=== PATIENT | female | born 1940 | race Caucasian/White ===

== ENCOUNTER → 2019-03-08 12:38 | Outpatient (CLI) | payer MEDICARE, OTHER, SELFPAY | PROVIDERS: PCP Family Medicine; Visit Provider Family Medicine | DX: M81.0 Age-related osteoporosis without current pathological fracture (principal); Z78.0 Asymptomatic menopausal state | CPT/HCPCS: 77080 ==

== ENCOUNTER 2019-04-30 11:05 | Emergency (ER) | payer MEDICARE, OTHER, SELFPAY ==
[2019-04-30 11:27] VITALS: BP 152/97; PULSE 80; RESP 12; TEMP 36.3; O2SAT 98
--- NOTE | 2019-04-30 11:57 | ED.FALL ---
HPI - Fall <Brianna Dhaliwal PA-C - Last Filed: 04/30/19 20:45> General Chief Complaint: Fall Stated Complaint: fell Time Seen by Provider: 04/30/19 11:38 Source: patient Mode of arrival: Ambulatory Limitations: no limitations History of Present Illness HPI Narrative: This 78-year-old female comes to ED secondary to fall and laceration. She states that she got up quickly from the bathroom and tripped over her throw rug or slipper, pitching her forward and causing her to hit the ledge of the shower on her left cheek/anabaptism area. She states that she has pain around the site of the laceration there, but otherwise no headache. She denies any vision change. She denies any nausea or vomiting. She states that she did not hit her head elsewhere, did not hit her neck and does not have any neck or back pain. She has not had any difficulty with speech or walking, came in because she thinks she needs stitches. She does take low-dose ASA for preventative reasons Related Data Home Medications Medication Instructions Recorded Confirmed BIOTIN/CA/CA PANTOTHENATE/CR3 1 tab PO Q DAY #0 12/07/10 (CENTRUM SILVER) aspirin 81 mg PO Q DAY #0 12/07/10 fenofibrate nanocrystallized 160 mg PO Q DAY #0 12/07/10 [Triglide] lisinopril 5 mg PO Q DAY #0 12/07/10 niacin 500 mg PO BID #0 12/07/10 omeprazole 20 mg PO Q DAY #0 12/07/10 Fluticasone Propionate (FLONASE) 2 spray INTRANASAL QDAY #0 06/01/12 hydrocodone-acetaminophen [Vicodin] 2 tab PO Q4HP #0 06/01/12 meloxicam [Mobic] 15 mg PO QDAY #0 06/01/12 pravastatin 40 mg PO HS #0 06/01/12 tolterodine [Detrol LA] 2 mg PO QDAY #0 cap 03/29/16 Allergies Allergy/AdvReac Type Severity Reaction Status Date / Time adhesive tape [ADHESIVE TAPE] Allergy Mild PAPER TAPE Unverified 09/27/17 12:55 CAUSED SKIN PEELING Sulfa (Sulfonamide Allergy Unknown UNKNONW Unverified 09/27/17 12:55 Antibiotics) Review of Systems <Brianna Dhaliwal PA-C - Last Filed: 04/30/19 20:45> Review of Systems ROS Unobtainable: All systems reviewed & are unremarkable except as noted in HPI and below Patient History <Brianna Dhaliwal PA-C - Last Filed: 04/30/19 20:45> Medical History (Updated 04/30/19 @ 14:47 by Brianna Dhaliwal PA-C) HTN (hypertension) (Chronic) Hyperlipidemia (Chronic) Overactive bladder (Chronic) Surgical History (Updated 04/30/19 @ 13:21 by Brianna Dhaliwal PA-C) History of femur fracture (Resolved) Status post clamping of cerebral aneurysm (Resolved) Status post tonsillectomy (Resolved) Social History (Updated 04/30/19 @ 12:21 by Brianna Dhaliwal PA-C) Smoking Status: Former smoker Substance Use Type: does not use Exam <Brianna Dhaliwal PA-C - Last Filed: 04/30/19 20:45> Narrative Exam Narrative: GENERAL APPEARANCE: Patient sitting comfortably, in no distress. HEENT: PERRL, EOMI, normal TMs and oropharynx, no scalp tenderness. tender over the left maxilla and infraorbital area where there is edema and ecchymoses, no tenderness elsewhere NECK: Supple LUNGS: Clear to auscultation bilaterally. HEART: Rate and rhythm regular without murmur, normal S1 and S2, no S3 or S4. NEUROLOGIC: Alert and oriented, normal speech, gait and coordination. MUSCULOSKELETAL: No point tenderness over the cervical or upper thoracic spine. Full Csp AROM without tenderness DERMATOLOGIC: Lateral to the left orbit and maxilla there is a 5.5 cm curvilinear laceration 4 mm at the deepest, distal portion with a to to 3 mm gap there, proximal portion 2 mm deep with no gap Initial Vital Signs Initial Vital Signs: Vital Signs Temperature 97.4 F L 04/30/19 11:27 Pulse Rate 80 04/30/19 11:27 Respiratory Rate 12 04/30/19 11:27 Blood Pressure 152/97 H 04/30/19 11:27 Pulse Oximetry 98 04/30/19 11:27 <Nikko Delgadillo DO - Last Filed: 05/01/19 07:58> Initial Vital Signs Initial Vital Signs: Vital Signs Temperature 97.4 F L 04/30/19 11:27 Pulse Rate 80 04/30/19 11:27 Respiratory Rate 12 04/30/19 11:27 Blood Pressure 152/97 H 04/30/19 11:27 Pulse Oximetry 98 04/30/19 11:27 Procedures <Brianna Dhaliwal PA-C - Last Filed: 04/30/19 20:45> Laceration Repair Laceration 1: Site: face (Hulbert, lateral to orbit) Side (If applicable): left Size (cm): 5.5 Description: linear and clean Depth: simple, single layer Local Anesthetic: lidocaine 1% and with epi Amount of anesthesia used (mL): 3 Pre-repair: wound explored, irrigated extensively and deep structures intact Skin layer closed with: nylon Size (cm): 5-0 and 6-0 Number of sutures: 10 Technique: simple, interrupted Course <Brianna Dhaliwal PA-C - Last Filed: 04/30/19 20:45> Course Additional Information: I have spoken with Dr. Hall, ENT who has reviewed scans and advised orbital fx appears not to need surgical intervention, so patient will be able to follow up in their clinic. She will call to schedule. Also advised follow up with PCP for suture removal. Orders Ordered: Discontinued Medications Acetaminophen (Tylenol) 650 mg PO NOW ONE Stop: 04/30/19 12:13 Last Admin: 04/30/19 12:18 Dose: 650 mg Documented by: PAUL Lidocaine/Epinephrine (Xylocaine 1% W/Epi) 1 ml SUBCUT NOW ONE Stop: 04/30/19 13:30 Last Admin: 04/30/19 13:32 Dose: 1 ml Documented by: PAUL Lidocaine/Prilocaine (Lidocaine-Prilocaine Cream) 5 gm TOP NOW ONE Stop: 04/30/19 12:12 Last Admin: 04/30/19 12:17 Dose: 5 gm Documented by: PAUL Vital Signs Vital signs: Vital Signs - 8 hr 04/30/19 14:59 Pulse Rate 81 Respiratory Rate 18 Blood Pressure 176/82 H Pulse Oximetry 94 <Nikko Delgadillo DO - Last Filed: 05/01/19 07:58> Orders Ordered: Discontinued Medications Acetaminophen (Tylenol) 650 mg PO NOW ONE Stop: 04/30/19 12:13 Last Admin: 04/30/19 12:18 Dose: 650 mg Documented by: PAUL Lidocaine/Epinephrine (Xylocaine 1% W/Epi) 1 ml SUBCUT NOW ONE Stop: 04/30/19 13:30 Last Admin: 04/30/19 13:32 Dose: 1 ml Documented by: PAUL Lidocaine/Prilocaine (Lidocaine-Prilocaine Cream) 5 gm TOP NOW ONE Stop: 04/30/19 12:12 Last Admin: 04/30/19 12:17 Dose: 5 gm Documented by: PAUL Vital Signs Vital signs: Vital Signs - 8 hr 04/30/19 14:59 Pulse Rate 81 Respiratory Rate 18 Blood Pressure 176/82 H Pulse Oximetry 94 MDM - Fall <Brianna Dhaliwal PA-C - Last Filed: 04/30/19 20:45> Imaging Data head: Radiologist's impression: [address] [address] [address] Scan Report Signed Patient: Lola Ash RMR#: [id number] : [id number]:[id number] Age/Sex: 78 / FDate of Service: 04/30/19 Loc: ED Accession Number: [id number] Procedure: CT head/brain wo con Ordering Provider: Brianna Dhaliwal P.A-C PROCEDURE: CT HEAD/BRAIN WO CON INDICATIONS: fall, on asa TECHNIQUE: Noncontrast 4.5 mm thick angled axial sections acquired from the foramen magnum to the vertex, with coronal and sagittal reformats. For radiation dose reduction, the following was used: automated exposure control, adjustment of mA and/or kV according to patient size. COMPARISON: [facility], MR, ANGIO NECK W/CONTRAST, 08/20/2004, 13:04. [facility], CT, ANGIO HEAD, 09/24/2012, 9:52. FINDINGS: Image quality: Excellent. CSF spaces: Basal cisterns are patent. No extra-axial fluid collections. The ventricles are symmetric in size and shape. Brain: Postsurgical changes compatible with prior cerebral aneurysm clipping are stable. No intracranial bleeds or masses. There is cerebral volume loss for age, with resultant ventricular and sulcal prominence. There are periventricular and deep white matter chronic small vessel ischemic changes. There is intracranial internal carotid artery and vertebral artery atherosclerosis. Skull and face: Postsurgical changes compatible with prior left frontal and temporal craniotomy for cerebral aneurysm clipping.. visualized facial bones appear intact, without suspicious lesions. Sinuses: Visualized sinuses and mastoids are clear. IMPRESSION: 1. No acute intracranial disease process. 2. No acute intracranial hemorrhage. 3. Stable postsurgical changes. Dictated by: Deb Guillermo MD, PhD on 04/30/2019 at 12:41 Approved by: Deb Guillermo MD, PhD on 04/30/2019 at 12:54 facial: Radiologist's impression: 21 Brianna Dhaliwal PA-C Find Patient Imaging - Lola Ash 78 F 1940 ACTIVITY DATE EXAM STATUS AUTHOR 04/30/19 12:14 Signed Deb Guillermo 04/30/19 12:14 [place] [address] CT Scan Report Signed Patient: Lola Ash RMR#: [id number] : [id number]:[id number] Age/Sex: 78 / FDate of Service: 04/30/19 Loc: ED Accession Number: [id number] Procedure: CT facial bones wo con Ordering Provider: Brianna Dhaliwal P.A-C PROCEDURE: CT FACIAL BONES WO CON INDICATIONS: fall, maxillary, infraorbital swelling TECHNIQUE: Noncontrast 2.5 mm thick axial images acquired from the mandible through the frontal sinuses, with coronal and sagittal reformatting. For radiation dose reduction, the following was used: automated exposure control, adjustment of mA and/or kV according to patient size. COMPARISON: None. FINDINGS: Image quality: Limited by patient motion artifact.. Bones and teeth: Postsurgical changes compatible with prior left frontal-temporal craniotomy for cerebral aneurysm clipping. There is a fracture of the lateral wall of the left orbit of indeterminate age. Sinus crenshaw show no fracture or deformity. Nasal bones and septum are intact. Visualized portions of the mandible demonstrate no fractures or subluxation. Zygomatic arches are intact. Pterygoid plates are intact. Visualized portions of the skull base and auditory canals are intact. Sinuses: Mucosal thickening noted in the maxillary sinuses, scattered throughout ethmoid air cells, and the sphenoid sinuses and in the frontal sinuses. The. Mastoid air cells are aerated. Soft tissues: No edema, masses, or fluid collections. No enlarged lymph nodes. No soft tissue lacerations or debris. Vascular: Visualized vascular structures appear normal in the absence of contrast. Bony vascular foramina and canals are intact. Atherosclerotic calcifications noted in the cavernous and supraclinoid segments of the internal carotid arteries bilaterally. IMPRESSION: 1. Mildly displaced, segmented left lateral orbital wall fracture of indeterminate age. 2. Mild pansinusitis. Dictated by: Deb Guillermo MD, PhD on 04/30/2019 at 12:54 Approved by: Deb Guillermo MD, PhD on 04/30/2019 at 13:01 Discharge Plan Departure Patient Disposition: Home Clinical Impression: Orbital fracture Qualifiers: Encounter type: initial encounter Fracture type: closed Qualified Code(s): S02.85XA - Fracture of orbit, unspecified, initial encounter for closed fracture Facial laceration Qualifiers: Encounter type: initial encounter Qualified Code(s): S01.81XA - Laceration without foreign body of other part of head, initial encounter Discharge Date/Time: 04/30/19 15:00 Instructions: DI for Laceration Repair, DI for Orbital Fracture Activity Restrictions/Additional Instructions: As we talked about, you should monitor your wound for any signs of infection such as warmth, draining pus, spreading redness, new fever, etc, and see your PCP right away or return to the ED if any of these occur. You should also return if you start to have any severe eye pain or vision change. Otherwise, please keep this wound clean and dry. You can rinse quickly and pat dry but do not keep immersed in water. Apply a little antibiotic ointment or Vaseline as needed to keep the sutures moist. I have spoken with the local oncology research rn today who reviewed your CT scan and states that the small fracture that you have under the eye area does not need surgery, however you should follow-up with them. Please call there today and let them know that Dr. Hall looked at your CT scan and advised follow-up in the office so that they can get you scheduled. Please have your sutures removed in about 5-7 days (your PCP can do this or you are welcome to return here). Prescriptions: No Action omeprazole 20 MG capsule,delayed release(DR/EC) 20 mg PO Q DAY Qty: 0 RF: 0 aspirin 81 MG tablet,delayed release (DR/EC) 81 mg PO Q DAY Qty: 0 RF: 0 BIOTIN/CA/CA PANTOTHENATE/CR3 (CENTRUM SILVER) 1 tab PO Q DAY Qty: 0 RF: 0 lisinopril 5 MG tablet 5 mg PO Q DAY Qty: 0 RF: 0 fenofibrate nanocrystallized [Triglide] 160 MG tablet 160 mg PO Q DAY Qty: 0 RF: 0 niacin 500 MG tablet 500 mg PO BID Qty: 0 RF: 0 meloxicam [Mobic] 7.5 MG tablet 15 mg PO QDAY Qty: 0 RF: 0 pravastatin 20 MG tablet 40 mg PO HS Qty: 0 RF: 0 hydrocodone-acetaminophen [Vicodin] 5 MG/300 MG tablet 2 tab PO Q4HP Qty: 0 RF: 0 Fluticasone Propionate (FLONASE) 2 spray Intranasal QDAY Qty: 0 RF: 0 tolterodine [Detrol LA] 2 MG capsule,extended release 24hr 2 mg PO QDAY Qty: 0 RF: 0 Referrals: Abbe Hall MD [Physician] - Balaji Soto MD [Primary Care Provider] - <Nikko Delgadillo, DO - Last Filed: 05/01/19 07:58> Sign Out Provider Sign Out Attestation: Dr Delgadillo Co-Sign Statement: I was available for consultation during this patient's emergency department visit. This chart is signed by myself for administrative purposes only. I did not have direct contact with this patient during this visit. They were seen independently by the APC.
--- NOTE | 2019-04-30 12:14 | DI.CT.S_ITS ---
PROCEDURE: CT FACIAL BONES WO CON INDICATIONS: fall, maxillary, infraorbital swelling TECHNIQUE: Noncontrast 2.5 mm thick axial images acquired from the mandible through the frontal sinuses, with coronal and sagittal reformatting. For radiation dose reduction, the following was used: automated exposure control, adjustment of mA and/or kV according to patient size. COMPARISON: None. FINDINGS: Image quality: Limited by patient motion artifact.. Bones and teeth: Postsurgical changes compatible with prior left frontal-temporal craniotomy for cerebral aneurysm clipping. There is a fracture of the lateral wall of the left orbit of indeterminate age. Sinus crenshaw show no fracture or deformity. Nasal bones and septum are intact. Visualized portions of the mandible demonstrate no fractures or subluxation. Zygomatic arches are intact. Pterygoid plates are intact. Visualized portions of the skull base and auditory canals are intact. Sinuses: Mucosal thickening noted in the maxillary sinuses, scattered throughout ethmoid air cells, and the sphenoid sinuses and in the frontal sinuses. The. Mastoid air cells are aerated. Soft tissues: No edema, masses, or fluid collections. No enlarged lymph nodes. No soft tissue lacerations or debris. Vascular: Visualized vascular structures appear normal in the absence of contrast. Bony vascular foramina and canals are intact. Atherosclerotic calcifications noted in the cavernous and supraclinoid segments of the internal carotid arteries bilaterally. IMPRESSION: 1. Mildly displaced, segmented left lateral orbital wall fracture of indeterminate age. 2. Mild pansinusitis. Dictated by: Deb Guillermo MD, PhD on 04/30/2019 at 12:54 Approved by: Deb Guillermo MD, PhD on 04/30/2019 at 13:01
--- NOTE | 2019-04-30 12:14 | DI.CT.S_ITS ---
PROCEDURE: CT HEAD/BRAIN WO CON INDICATIONS: fall, on asa TECHNIQUE: Noncontrast 4.5 mm thick angled axial sections acquired from the foramen magnum to the vertex, with coronal and sagittal reformats. For radiation dose reduction, the following was used: automated exposure control, adjustment of mA and/or kV according to patient size. COMPARISON: [facility], MR, ANGIO NECK W/CONTRAST, 08/20/2004, 13:04. [facility], CT, ANGIO HEAD, 09/24/2012, 9:52. FINDINGS: Image quality: Excellent. CSF spaces: Basal cisterns are patent. No extra-axial fluid collections. The ventricles are symmetric in size and shape. Brain: Postsurgical changes compatible with prior cerebral aneurysm clipping are stable. No intracranial bleeds or masses. There is cerebral volume loss for age, with resultant ventricular and sulcal prominence. There are periventricular and deep white matter chronic small vessel ischemic changes. There is intracranial internal carotid artery and vertebral artery atherosclerosis. Skull and face: Postsurgical changes compatible with prior left frontal and temporal craniotomy for cerebral aneurysm clipping.. visualized facial bones appear intact, without suspicious lesions. Sinuses: Visualized sinuses and mastoids are clear. IMPRESSION: 1. No acute intracranial disease process. 2. No acute intracranial hemorrhage. 3. Stable postsurgical changes. Dictated by: Deb Guillermo MD, PhD on 04/30/2019 at 12:41 Approved by: Deb Guillermo MD, PhD on 04/30/2019 at 12:54
[2019-04-30] MEDS: LIDOCAINE/PRILOCAINE 5 GM TOP (12:17)
[2019-04-30] MEDS: ACETAMINOPHEN 325 MG TABLET 650 MG PO (12:18)
[2019-04-30] MEDS: LIDOCAINE 1% W/EPI 1 ML SUBCUT (13:32)
[2019-04-30 14:59] VITALS: BP 176/82; PULSE 81; RESP 18; O2SAT 94
== END 2019-04-30 15:00 | disposition home or self-care (01) ==
PROVIDERS: Emergency Provider Internal Medicine; PCP Family Medicine
DX: S02.85XB Fracture of orbit, unspecified, initial encounter for open fracture (principal); W01.190A Fall on same level from slipping, tripping and stumbling with subsequent striking against furniture, initial encounter
CPT/HCPCS: 12014; 70450; 70486; 99283; 99284

== ENCOUNTER → 2019-10-18 12:32 | Outpatient (CLI) | payer MEDICARE, OTHER, SELFPAY ==
--- NOTE | 2019-10-18 12:36 | DI.MRI.S_ITS ---
PROCEDURE: MR STROKE Pre- and post-contrast brain MRI, non-contrast brain MR angiogram, pre- and postcontrast neck MR angiogram INDICATIONS: Dizziness and giddiness TECHNIQUE: Brain: Noncontrast axial T1 spin echo, axial T2 fast spin echo, sagittal and axial FLAIR, coronal T2 fast spin echo, axial gradient echo, axial diffusion and ADC through the brain. After the administration of contrast, axial 3D VIBE of the cranial vasculature and brain. Brain MRA: Non-contrast 3-D time of flight MR angiogram, with multiple gagemdf-ljpswwgno-cwvrytmdsg (MIP) reformats performed. Neck MRA: Axial and sagittal TruFISP through the neck. Coronal dynamic MR angiogram during administration of contrast in the arterial and venous phases, with 3-dimenstional zwbctuz-nydxusedk-gmkyjzffhv (MIP) reformats constructed from subtraction images. COMPARISON: None. FINDINGS: Image quality: Limited by susceptibility artifact BRAIN: CSF spaces: Ventricles are normal in size and shape. Basal cisterns are patent. No extra-axial fluid collections. Brain: No intracranial bleeds or mass effects. Zepeda-white matter interface is normal. Diffusion weighted images show no acute ischemic insults. Brainstem appears normal. Normal intravascular flow voids are present. No abnormal intracranial enhancement. Skull and face: Left-sided craniotomy changes are seen. Calvarial marrow signal is normal. Orbits appear normal. Note is made of bilateral lens replacements. Sinuses: Sinuses and mastoids are clear. BRAIN MR ANGIOGRAM: Anterior circulation: Left carotid terminus aneurysm clips are seen, which are better demonstrated on the prior CT. There is regional susceptibility artifact with dropout of signal. Intracranial internal carotid arteries are normal in size and enhancement. The flow within the paired anterior cerebral arteries is normal and symmetric. The flow within the middle cerebral arteries is normal and symmetric. The anterior communicating artery is seen. No stenoses, occlusions, or aneurysms. Posterior circulation: The visualized portions of the vertebral arteries demonstrate normal caliber, and join to form a normal appearing basilar artery. The flow within the posterior cerebral arteries is normal and symmetric. No stenoses, occlusions, or aneurysms. NECK MR ANGIOGRAM: Carotids: Great vessels demonstrate a conventional anatomy as they arise from the aortic arch. The origins of the common carotid arteries appear patent. The calibers and courses of both common carotid arteries are normal. The bifurcation regions appear normal bilaterally. The internal carotid arteries demonstrate normal course and caliber. Posterior circulation: The origins of the vertebral arteries appear patent. More superior portions of both vertebral arteries demonstrate normal course and caliber, and join to form a normal appearing basilar artery. Miscellaneous: Subclavian arteries appear patent. Pre-contrast images through the neck show no soft tissue abnormalities. IMPRESSION: BRAIN MRI: No findings of acute or subacute infarction can be seen. No acute intracranial process is seen. No masses or abnormal enhancement can be seen. BRAIN MR ANGIOGRAM: Left carotid terminus aneurysm clips, which are better demonstrated on the prior CT examination. Evaluation of the arteries within this region is limited. No findings of recurrent aneurysms are detected. No significant intracranial arterial abnormality is seen. NECK MR ANGIOGRAM: Within the arteries of the neck, no hemodynamically significant stenosis can be seen. Dictated by: Payam Bruce M.D. on 10/18/2019 at 13:17 Approved by: Payam Bruce M.D. on 10/18/2019 at 13:24
== END ==
PROVIDERS: PCP Family Medicine; Referring Provider Family Medicine; Visit Provider Family Medicine
DX: R42 Dizziness and giddiness (principal); R20.2 Paresthesia of skin
CPT/HCPCS: 70548; 70553; A9579

== ENCOUNTER → 2021-05-27 09:33 | Outpatient (CLI) | payer MEDICARE, OTHER, SELFPAY | PROVIDERS: PCP Family Medicine; Referring Provider Family Medicine; Visit Provider Family Medicine | DX: R20.2 Paresthesia of skin (principal) | CPT/HCPCS: 95886; 95909 ==

== ENCOUNTER → 2021-10-14 15:28 | Outpatient (CLI) | payer MEDICARE, OTHER, SELFPAY | PROVIDERS: PCP Family Medicine; Referring Provider Family Medicine; Visit Provider Family Medicine | DX: R19.00 Intra-abdominal and pelvic swelling, mass and lump, unspecified site (principal) ==

== ENCOUNTER → 2021-10-20 15:49 | Outpatient (CLI) | payer MEDICARE, OTHER, SELFPAY ==
--- NOTE | 2021-10-20 15:51 | DI.MRI.S_ITS ---
PROCEDURE: MR PELVIS WO/W CON INDICATIONS: Intra-abdominal and pelvic swelling, mass and lump TECHNIQUE: Coronal HASTE, sagittal breath-hold T2 FSE; axial T1 FSE with and without fat saturation through the pelvis. Optional long- and short-axis uterine nonbreath-hold T2 FSE through the uterus. Sagittal or axial dynamic VIBE during administration of contrast. Post-contrast axial or coronal VIBE/2-D FLASH with fat saturation from the iliac crests to the symphysis. Optional diffusion weighted imaging and ADC may be performed. COMPARISON: [facility], RG, US PELVIC COMPLETE, 09/20/2021, 14:29. CT abdomen pelvis 09/19/21 at [facility]. FINDINGS: Image quality: Excellent. Uterus: Uterus is anteverted and age-appropriate in size. 0.8 cm T2 hypointense posterior fundal myometrial fibroid is present. There is slight heterogeneity of the left anterior myometrium, potentially a tiny fibroid measuring less than 4 mm. Endometrium is normal in thickness. Junctional zone is normal in thickness at 12 mm or less. Adnexa: Replacing the left ovary is a homogeneously T1 and T2 isointense circumscribed mass measuring 3.5 x 3.2 x 1.7 cm immediately anterior to the left uterine fundus. A discrete tissue bridge or discrete fat plane between the uterus and the mass is not discernible. Post-contrast there is moderate, homogeneous enhancement. There is restricted diffusion. The right ovary is comprised of a multiloculated cystic mass with varying components measuring altogether about 5.5 x 3.6 x 4.1 cm. The dominant component is a unilocular cyst. Other components demonstrate hemorrhagic components with mild intrinsic T1 and T2 hyperintensity and foci of prominent T2 hypointensity. Postcontrast there appears to be enhancement of small solid components present. Urinary system: Bladder wall is normal in thickness. Distal ureters are non distended. Urethra appears normal in morphology. Nodes and vessels: No pelvic or inguinal adenopathy by size criteria. Iliac vessels are normal in size. Bowel and peritoneum: No pathologic free pelvic fluid. Inferior colon and small bowel loops are normal in caliber. Soft tissues: No inguinal hernias. No findings of pelvic floor incompetence in the absence of provocation. Bones: Marrow demonstrates normal overall signal. IMPRESSION: 1. 3.5 cm solid left adnexal mass, most likely arising from the left ovary, with signal and enhancement characteristics suspicious for hormone producing tumor such as granulosa cell tumor or fibrothecoma. Malignancies such as a Krukenberg or serous epithelial tumors should also be considered given the presence of a contralateral ovarian mass. There is differential diagnosis of pedunculated uterine fibroid. 2. Multi cystic 5.5 cm right ovarian mass comprised of a unilocular cyst and a few hemorrhagic appearing cysts demonstrate stromal enhancement. Given the patient's age, physiologic cysts are unlikely and malignancy should be considered. 3. Age-appropriate uterine size with minimal fibroid change. 4. No suspicious free pelvic fluid or adenopathy. Dictated by: Trinidad Uriarte M.D. on 10/21/2021 at 13:26 Approved by: Trinidad Uriarte M.D. on 10/21/2021 at 13:55
== END ==
PROVIDERS: PCP Family Medicine; Referring Provider Family Medicine; Visit Provider Family Medicine
DX: R19.00 Intra-abdominal and pelvic swelling, mass and lump, unspecified site (principal); N83.201 Unspecified ovarian cyst, right side
CPT/HCPCS: 72197; A9579

== ENCOUNTER → 2022-08-05 14:18 | Outpatient (CLI) | payer MEDICARE, OTHER, SELFPAY ==
--- NOTE | 2022-08-05 | DI.RAD.S_ITS ---
PROCEDURE: XR HIP W PEL IF DONE CLAUDIA MIN 4V INDICATIONS: LEFT HIP PAIN TECHNIQUE: AP pelvis with lateral view(s) of the both hip(s). COMPARISON: None. FINDINGS: Bones: No fractures or dislocations. 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 Pelvic ring appears intact. No suspicious bony lesions. Soft tissues: The visualized bowel gas pattern is normal. No suspicious soft tissue calcifications. 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 Dictated by: Holladn Pavon M.D. on 08/05/2022 at 14:58 Approved by: Holland Pavon M.D. on 08/05/2022 at 15:00
== END ==
PROVIDERS: PCP Family Medicine; Referring Provider Family Medicine; Visit Provider Family Medicine
DX: M25.552 Pain in left hip (principal); M16.0 Bilateral primary osteoarthritis of hip
CPT/HCPCS: 73522

== ENCOUNTER → 2023-03-08 15:21 | Outpatient (CLI) | payer MEDICARE, OTHER, SELFPAY ==
[2023-03-08 16:06] LABS: Add Manual Diff / Slide Review NO; Basophils Absolute Auto 0 /uL (0-100); Basophils Percent Auto 0.5 % (0-2); Eosinophils Absolute Auto 100 /uL (0-450); Eosinophils Percent Auto 1.8 % (2-4); Hematocrit 39.4 % (36-46); Hemoglobin 13.6 g/dL (12.0-16.0); Lymphocytes Absolute Auto 1700 /uL (1100-4500); Lymphocytes Percent Auto 23.4 % (25-40); Mean Corpuscular HGB Conc 34.5 % (30-36); Mean Corpuscular Hemoglobin 34.9 PG (26-34); Mean Corpuscular Volume 101.2 fL (80-100); Monocytes Absolute Auto 1100 /uL (0-900); Monocytes Percent Auto 15.2 % (3-14); Neutrophils Absolute Auto 4400 /uL (1500-7000); Neutrophils Percent Auto 59.1 % (50-75); Platelet Count 263 X10^3/uL (150-400); Red Cell Distribution Width 12.6 % (11.6-14.8); White Blood Cell Count 7.4 X10^3/uL (4.5-11.0)
[2023-03-08 16:17] LABS: Hemoglobin A1C% w Est Avg Glu 5.1 % (4.0-6.0)
[2023-03-08 18:09] LABS: BUN Creatinine Ratio 19.4 (6-22); Blood Urea Nitrogen 20 mg/dL (7-17); Calcium 10.2 mg/dL (8.4-10.2); Carbon Dioxide 27 mmol/L (22-32); Chloride 97 mmol/L (98-107); Estimated Glomerular Filt Rate 55 mL/min (>60); Glucose 105 mg/dL (80-110); HEMOLYSIS < 15 (0-50); Potassium 4.1 mmol/L (3.4-5.1); Sodium 133 mmol/L (137-145)
[2023-03-09 14:54] LABS: Appearance Urine UA CLEAR; Bilirubin Urine UA NEGATIVE (NEGATIVE); Color Urine UA YELLOW; Glucose Urine UA NEGATIVE (Negative); Ketones Urine UA TRACE (NEGATIVE); Leukocyte Esterase Urine UA 1+ (NEGATIVE); Nitrite Urine UA POSITIVE (Negative); Occult Blood Urine UA NEGATIVE (Negative); Protein Urine UA NEGATIVE (Negative); Specific Gravity Urine UA 1.015 (1.000-1.035); Urobilinogen Urine UA 0.2 E.U./dL (0.2)
[2023-03-09 15:53] LABS: pH Urine UA 6.5 (4.5-8.0)
[2023-03-09 15:54] LABS: Bacteria Urine Moderate (10-30); Culture Indicated Urine Specimen Cultured; RBC Urine 1-5/HPF (0-5/HPF); Squamous Epithelial Cell Urine 1-5 /HPF (0-5/HPF); WBC Urine 5-10/HPF (0-5/HPF)
== END ==
PROVIDERS: PCP Family Medicine; Referring Provider Orthopaedic Surgery; Visit Provider Orthopaedic Surgery
DX: Z01.818 Encounter for other preprocedural examination (principal); R73.9 Hyperglycemia, unspecified; Z01.812 Encounter for preprocedural laboratory examination; N39.0 Urinary tract infection, site not specified
CPT/HCPCS: 36415; 80048; 81001; 83036; 85025; 87077; 87086; 87186; 93005

== ENCOUNTER → 2023-03-31 12:14 | Outpatient (ROUT) | payer MEDICARE, OTHER, SELFPAY ==
[2023-03-31 12:55] LABS: Influenza A - CEPHEID Flu A NEGATIVE (NEGATIVE); Influenza B - CEPHEID Flu B NEGATIVE (NEGATIVE); Respiratory Syncytial Virus Negative (Negative)
[2023-03-31 13:31] LABS: COVID-19 CEPHEID 4-PLEX PCR Negative (Negative)
== END ==
PROVIDERS: PCP Family Medicine; Visit Provider Family Medicine
DX: Z20.822 Contact with and (suspected) exposure to COVID-19 (principal)
CPT/HCPCS: 0241U

== ENCOUNTER 2023-05-09 11:09 | Day surgery (SDC) | payer MEDICARE, OTHER, SELFPAY ==
[2023-05-01 09:28] VITALS: BMI 26.5
[2023-05-09] VITALS (11 sets, daily range): BP systolic 124–157; BP diastolic 20–90; PULSE 82–100; RESP 14–20; TEMP 35.9–37.2; O2SAT 93–98; BMI 26.2
--- NOTE | 2023-05-09 | DI.RAD.S_ITS ---
PROCEDURE: XR HIP W PEL IF DONE LT 2V INDICATIONS: LEFT TOTAL HIP TECHNIQUE: 2 view(s) of the hip acquired. COMPARISON: [facility], JORGE LUIS, XR HIP W PEL IF DONE CLAUDIA 3TO4V, 08/05/2022, 14:30. FINDINGS: Bones: Patient is status post left hip arthroplasty, with hardware components in expected positions. The hip joint appears congruent. The visualized bony structures appear intact. Soft tissues: Overlying postoperative changes are noted. No suspicious soft tissue densities. IMPRESSION: Expected post-operative appearance of a hip arthroplasty. Dictated by: Ji Resendiz M.D. on 05/09/2023 at 16:47 Approved by: Ji Resendiz M.D. on 05/09/2023 at 16:48
--- NOTE | 2023-05-09 09:45 | DI.RAD.S_ITS ---
PROCEDURE: Single view of the pelvis. INDICATIONS: INNER OP COMPARISON: None. FINDINGS: Intraoperative images demonstrating left total hip replacement are seen. IMPRESSION: Left total hip replacement with good positioning. Dictated by: Giles Stoll M.D. on 05/09/2023 at 16:20 Approved by: Giles Stoll M.D. on 05/09/2023 at 16:21
[2023-05-09] MEDS: ACETAMINOPHEN 325 MG TABLET 975 MG PO (11:55)
[2023-05-09] MEDS: LACTATED RINGERS 1,000 ML 42 ML IV ×2 (11:56→14:34)
[2023-05-09] MEDS: VANCOMYCIN 1,000 MG/200 ML PIGGYBACK 200 MG IV (12:23)
--- NOTE | 2023-05-09 13:32 | P.OP_ITS ---
Operative Date/Time/Diagnoses Date of procedure: 05/09/23 Time of procedure: 13:30 Pre-op diagnosis: Left hip OA Post-op diagnosis: same Procedure & Clinicians Procedure: Left total hip arthroplasty posterior approach Same procedure as scheduled: Yes Indications: The patient has had progressively worsening left hip pain with radiographic karla nges consistent with posttraumatic arthritis. She has a history of a prior femur fracture and prior femoral beau. Non-operative management has failed and the patient has requested total hip replacement. The risks, benefits and alternatives to surgery were discussed with the patient prior to proceeding. Risks discussed included, but were not limited to, failure to relieve pain, leg length discrepancy, dislocation, stiffness, infection, nerve damage, deep venous thrombosis, pulmonary embolism, stroke, coma, heart attack, permanent paralysis and , as well as the potential need for eventual revision of the prosthetic. Surgeon: [place] Wilkinson Plant Electrical Engineer: Renan Galloway Anesthesia Type: General Operative Notes Findings: Severe left hip OA, adequate stability, adequate bone, significant scar in the bone and some moderate deformity especially of the posterior trochanter secondary to the prior fracture. Closure Type: primary Specimen(s): none sent Prosthetic devices, grafts, tissues, transplants, or devices: [employer] Synergy cemented size 10, 52 mm R3, neutral poly liner, two 6.5 mm screws, cobalt chrome 36 x -3 head, 8 mm distal cementralizer, small cement restrictor Estimated Blood Loss (mL): 250 Blood products transfused: none Procedure in detail: The patient was seen in the pre-operative area, where the patient identified the left hip as the operative site and this was marked with my initials. The patient received pre-operative antibiotics and was taken to the operating room and placed on the operative table in the right lateral decubitus position after satisfactory anesthesia. A civil drafting technician out was performed. The left leg was prepared from the ankle to the iliac crest with ChloroPrep in the usual fashion and draped through sterile drapes. A PA was used throughout the procedure was essential for intraoperative retraction and safe implantation of the components. The hip was approached through an approximately 24 cm incision centered over the greater trochanter and curving gently posteriorly as it went proximally. This was carried sharply to the fascia juancarlos, which was divided and retracted with a self retaining retractor. The trochanteric bursa was excised with care being taken to avoid the sciatic nerve, which was identified and protected throughout the case. The short external rotators were incised and the capsulomuscular flap was raised and tagged for later repair. The hip was dislocated, and a femoral neck osteotomy performed approximately 15 mm above the lesser trochanter. Retractors were placed around the femur. The canal was opened with a box cutting osteotome, followed by a T handled reamer and a lateralizing reamer. The canal was sequentially reamed. The initial broach was then used, followed by sequential broaching until there was good stability of the broach in the femur. There was significant deformity of the proximal femur secondary to the previous surgery. We meticulously worked to work around the trochanter there was deformity in the trochanter but it was not severe enough that I thought she was better treated with a trochanteric osteotomy. It had healed in a posterior position and there was some deformity with it overlying the canal. I meticulously ream and confirmed that my Reamer was in the canal. Distally there was some sclerotic bone. Acceptable stability of the broach was achieved in the canal. Retractors were placed to expose the acetabulum. The labrum and central soft tissues were removed. Reaming was performed initially going up in 2 mm increments, then 1 mm increments until good bite was obtained with an odd sized reamer. The cup 1 mm larger than the last reamer was then inserted using the appropriate anteversion guides. It was further stabilized with two screws. A trial neutral liner was placed. The broach was placed in the canal. A trial head and neck were then placed and the hip relocated and checked for leg length and stability. An intraoperative film confirmed the component position and no evidence of fracture. The patient was stable in the position of sleep, of squatting, and could be put through a range of motion with 45 degrees internal rotation without dislocation. At 90 degrees flexion, internal rotation to 80? was possible before dislocation. This was felt to be satisfactory and the appropriate components were opened, and the trials were removed. The acetabular liner was impacted into position. The final stem was then impacted into the prepared femoral canal. A brief Betadine soak was performed while trialing with head options. The hip was meticulously irrigated with normal saline. Finally the femoral head was impacted onto the stem. The acetabulum was cleared of all material and the hip relocated one final time. The capsulomuscular flap was then repaired to the greater trochanter though an awl hole using the tag sutures. The short external rotators were repaired with a nonabsorbable suture. A deep drain was placed and brought out anteriorly. The fascia juancarlos was closed with Vicryl. The subcutaneous layer was closed with barbed sutures and SteriStrips. An Aquacel Ag dressing was applied and the patient was taken to recovery having tolerated the procedure well. Complications: none Post-operative Condition: stable Disposition: Acute Care Plan for aftercare: The patient will be maintained on a standard total hip replacement protocol with weight bearing as tolerated and posterior hip precautions. The patient will receive Aspirin and sequential compression devices for DVT prophylaxis. The patient will be discharged home when safe for the home environment.
--- NOTE | 2023-05-09 13:32 | PM.PREOP ---
Pre-operative Note Interval Note History & Physical reviewed/Exam performed by Physician: Yes Changes to H&P: No
[2023-05-09] MEDS: CEFAZOLIN 2 GM/100 ML PREMIX 100 ML IV ×2 (13:35→21:29)
[2023-05-09] MEDS: TRANEXAMIC ACID 1,000 MG VIAL 1000 MG INJ ×2 (13:51→15:37)
--- NOTE | 2023-05-09 14:18 | SUR.OPER ---
Lateral on padded OR bed. Gel axillary roll. Arms secured on padded armboard with pillow supporting top arm. Padded hip positioner braces x4 - anterior and posterior chest and pelvis. Additional gel pad used anterior pelvis. Gel pad under bottom leg from knee to foot and secured with tape over sheet.
[2023-05-09] MEDS: BUPIVACAINE LIPOSOME 266 MG/20 ML VIAL INJ (14:27)
[2023-05-09] MEDS: BUPIVACAINE 0.25% (PF) 60 ML, EPINEPHrine 0.3 MG INJ (14:28)
[2023-05-09] MEDS: OXYCODONE IR 5 MG TABLET PO ×2 (16:22→21:30)
[2023-05-09] MEDS: LACTATED RINGERS 1,000 ML 100 ML IV (17:10)
[2023-05-09] MEDS: IBUPROFEN 400 MG TABLET PO ×2 (17:11→21:30)
[2023-05-09] MEDS: ACETAMINOPHEN 325 MG TABLET 650 MG PO (17:12)
[2023-05-09] MEDS: ATORVASTATIN 20 MG TABLET 10 MG PO (21:30)
[2023-05-09] MEDS: ASPIRIN EC 81 MG TABLET PO (21:30)
[2023-05-09] MEDS: DOCUSATE 100 MG CAPSULE PO (21:30)
[2023-05-10] MEDS: IBUPROFEN 400 MG TABLET PO ×3 (00:49→08:42)
[2023-05-10] MEDS: LACTATED RINGERS 1,000 ML 100 ML IV (00:49)
[2023-05-10] MEDS: OXYCODONE IR 5 MG TABLET PO (00:49)
[2023-05-10 04:00] VITALS: BP 138/56; PULSE 79; RESP 18; TEMP 36.1; O2SAT 97
[2023-05-10] MEDS: ACETAMINOPHEN 325 MG TABLET 650 MG PO (04:20)
[2023-05-10] MEDS: CEFAZOLIN 2 GM/100 ML PREMIX 100 ML IV (04:20)
[2023-05-10] MEDS: PANTOPRAZOLE DR 20 MG TABLET PO (05:24)
[2023-05-10 06:41] LABS: Hematocrit 32.1 % (36-46)
--- NOTE | 2023-05-10 07:16 | P.DS_ITS ---
History of Present Illness History of Present Illness Date Patient Seen: 05/10/23 Time Patient Seen: 07:16 Chief complaint: Left ALVERTO *OPB* Narrative: Operative Date/Time/Diagnoses Date of procedure: 05/09/23 Time of procedure: 13:30 Pre-op diagnosis: Left hip OA Post-op diagnosis: same Procedure & Clinicians Procedure: Left total hip arthroplasty posterior approach Same procedure as scheduled: Yes Indications: The patient has had progressively worsening left hip pain with radiographic changes consistent with posttraumatic arthritis. She has a history of a prior femur fracture and prior femoral beau. Non-operative management has failed and the patient has requested total hip replacement. The risks, benefits and alternatives to surgery were discussed with the patient prior to proceeding. Risks discussed included, but were not limited to, failure to relieve pain, leg length discrepancy, dislocation, stiffness, infection, nerve damage, deep venous thrombosis, pulmonary embolism, stroke, coma, heart attack, permanent paralysis and , as well as the potential need for eventual revision of the prosthetic. Surgeon: [place] Wilkinson Healthcare Consultant: Renan Galloway Anesthesia Type: General Operative Notes Findings: Severe left hip OA, adequate stability, adequate bone, significant scar in the bone and some moderate deformity especially of the posterior trochanter secondary to the prior fracture. Closure Type: primary Specimen(s): none sent Prosthetic devices, grafts, tissues, transplants, or devices: [employer] Synergy cemented size 10, 52 mm R3, neutral poly liner, two 6.5 mm screws, cobalt chrome 36 x -3 head, 8 mm distal cementralizer, small cement restrictor Estimated Blood Loss (mL): 250 Blood products transfused: none Discharge Providers Provider Discharge Date: 05/10/23 Primary care physician: Balaji Soto MD Consults: 05/09/23 09:43 Consult to Anesthesiology Routine Comment: Consulting Provider: Anesthesiologist Reason for consultation: Regional block for post operative pain control 05/09/23 11:47 Consult to Grants Analyst Routine Comment: 05/09/23 16:37 Consult to Discharge Planning Routine Comment: Consult to Occupational Therapy Evaluate & Treat Comment: Physician Instructions: Evaluate and treat Consult to Physical Therapy Evaluate & Treat Comment: Physician Instructions: post op ALVERTO protocol 05/09/23 17:23 Consult to Grants Analyst Routine Comment: Discharge provider: Abimbola Sherman PA-C Summary Hospital Course Discharge Diagnosis: Left hip osteoarthritis, s/p left total hip arthroplasty Hospital Course: Ms [facility] course was unremarkable. On the morning of POD# 1, she was feeling well and wanted to go home. She was eating and voiding without difficulty and her pain was well-controlled with oral medication. She had not yet worked w/ PT but she had been OOB. Exam Vital Signs (past 8 hours): - 05/10/23 04:00 Temperature 97.0 F L Pulse Rate 79 Respiratory Rate 18 Blood Pressure 138/56 L Pulse Oximetry 97 Oxygen Flow Rate 0 Oxygen Delivery Method Room Air Oxygen Flow Rate 0 Narrative Exam Narrative: 5/5 strength in hip flexors, quadriceps, hamstrings, DF, PF, EHL on left. Sensation to light touch intact throughout LLE. Calf soft, compressible, nontender. Aquacel dressing CDI. Objective Labs 05/10/23 05:44 Labs: Laboratory Results - last 24 hr 05/10/23 05:44 Hgb 11.0 L Hct 32.1 L PFSH Medical History (Updated 05/01/23 @ 10:17 by America Lance RN) Influenza (04/03/23) Easy bruisability Osteoarthritis Hearing impaired Hyperlipidemia HTN (hypertension) Overactive bladder Surgical History (Updated 05/01/23 @ 10:15 by America Lance RN) History of hysterectomy Status post clamping of cerebral aneurysm History of femur fracture Status post tonsillectomy Social History (Updated 04/30/19 @ 12:21 by Brianna Dhaliwal PA-C) household members: significant other Smoking Status: Former smoker alcohol intake: current Discharge Assessment & Plan Assessment and Plan Assessment: Left hip osteoarthritis, s/p left total hip arthroplasty Plan of Treatment: Dsicharge home after PT if PT agrees. Pt has all discharge medications, including oxycodone, at home. ASA BID x 6 weeks for VTE prophylaxis, outpt PT, f/u in office in 2 weeks as scheduled. Discharge Plan Discharge Plan Patient Disposition: Home Provider Discharge Comment: Increase aspirin to twice a day. Discharge orders & Medications Discharge Orders: Discharge (Order); Ordered 05/10/23 Ordered By: Abimbola Sherman Prescriptions: Continued omeprazole 20 MG capsule,delayed release(DR/EC) 20 mg PO Q DAY Qty: 0 aspirin 81 MG tablet,delayed release (DR/EC) 81 mg PO Q DAY Qty: 0 atorvastatin 10 mg Tablet 10 mg PO BEDTIME meloxicam 15 mg Tablet 15 mg PO DAILY amlodipine 5 mg Tablet 5 mg PO DAILY losartan 100 mg Tablet 100 mg PO DAILY darifenacin 7.5 mg Tablet Extended Release 24 Hr 7.5 mg PO BID oxycodone 5 mg tablet 5 mg PO Q4-6H PRN (Reason: pain) Follow up/Referrals: Balaji Soto MD [Primary Care Provider] - Florida Wilkinson MD [Physician] - As previously scheduled (Follow up with Renan Galloway PA-C, on 05/24/2023 @ 2:20 pm at [facility] in [place].) Diet/Activity/Treatments Diet: Diet as Tolerated Activity: Weightbearing as tolerated to left leg. Posterior hip precautions. Cold/Heat Therapy: Ice to hip as needed for pain. Skin/Wound/Dressing Care Report to your healthcare provider any signs of infection, such as:: chills, fever, night sweats, unusual drainage and unusual redness Dressing: May shower. Leave dressing in place until follow up in office. No bathing or otherwise soaking incision. Call the office if the dressing becomes saturated inside. Visit Report/Discharge Packet Instructions: DI for Hip Replacement, DI for Prescription Opioid Use Stand Alone Forms: Patient Portal/API, Surgery Discharge Discharge Data Primary Care Provider: Balaji Soto Attending Provider: [place] Wilkinson
[2023-05-10 08:22] VITALS: BP 133/69; PULSE 61; RESP 19; TEMP 35.8; O2SAT 93
[2023-05-10 08:43] VITALS: BP 133/69; PULSE 61
[2023-05-10] MEDS: OXYBUTYNIN 5 MG ER TAB PO (08:43)
[2023-05-10] MEDS: AMLODIPINE 5 MG TABLET PO (08:43)
[2023-05-10] MEDS: LOSARTAN 50 MG TABLET 100 MG PO (08:43)
[2023-05-10] MEDS: ASPIRIN EC 81 MG TABLET PO (08:44)
[2023-05-10] MEDS: DOCUSATE 100 MG CAPSULE PO (08:44)
--- NOTE | 2023-05-10 09:30 | PT.IIE ---
Current Diagnoses Unilateral post-traumatic osteoarthritis, left hip (05/09/23) Surgery Performed Operation Date: 05/09/23 13:15 Actual Procedures p Total Hip Arthroplasty(Left) - [place] Wilkinson MD Surgical History (Last Updated 05/01/23 @ 10:15 by America Lance, RN) History of femur fracture History of hysterectomy Status post clamping of cerebral aneurysm Status post tonsillectomy Medical History (Last Updated 05/01/23 @ 10:17 by America Lance RN) Easy bruisability Hearing impaired HTN (hypertension) Hyperlipidemia Influenza (04/03/23) Osteoarthritis Overactive bladder Physical Therapy Inpatient Evaluation/Re-Eval M1 PT/OT-IP Prior Functional Status Start: 05/10/23 10:36 Freq: NEEDED Status: Active Protocol: Document 05/10/23 09:30 AB (Rec: 05/10/23 12:32 AB [id number]) Medical Review Prior Functional Status Medical History Reviewed Yes Communication able to make needs known Mobility and Gait pt stated that she is modified independent with all mobilities and ambulation without AD indoors but uses a SPC for outdoor mobility Social History Household Members significant other Living Arrangements House Number of Floors (Floors) One Floor Number of Stairs To Enter/Railing? 2 steps to the side walk without rails + 2 steps with R rail ascending to the deck before entering the house Home Environment Standard Height Toilet,Walk in Shower,Built-In Shower Seat Home Equipment Front Wheel Walker,Straight Cane,Hand Held Shower Additional Social History Comment pt stated that her partner has Alzheimer's Dse and is limited with assistance he can provide but she can direct him to assist her. Daughter will be assisting today when pt goes home M2 PT-IP Current Condition Start: 05/10/23 10:36 Freq: NEEDED Status: Active Protocol: Document 05/10/23 09:30 AB (Rec: 05/10/23 12:32 AB [id number]) Physical Therapy Current Condition Current Condition Evaluation Date 05/10/23 Treatment Diagnosis s/p L ALVERTO posterior approach; difficulty in walking Onset Date 05/09/23 M3 PT-IP Subjective Start: 05/10/23 10:36 Freq: NEEDED Status: Active Protocol: Document 05/10/23 09:30 AB (Rec: 05/10/23 12:32 AB [id number]) Subjective Physical Therapy Visit Type Type Initial Evaluation Visit Start Time 09:30 Visit Stop Time 10:40 Total Visit Minutes 70 Number of MENTAL MEASUREMENTS TEACHER Visits 0 Physical Therapy Visit Comments Patient Comments agreeable to do PT Therapy Pain Assessment Pain When Pain Assessed At Rest Pain Present Pain Present Pain Reported Location Left Hip Intensity 4 Scale Used Numeric (0 - 10) Pain Management Techniques Distraction,Modification of Treatment,Re-positioning, Timing of Activity with Medications M4 PT-IP Mobility and Gait Start: 05/10/23 10:36 Freq: NEEDED Status: Active Protocol: Document 05/10/23 09:30 AB (Rec: 05/10/23 12:32 AB [id number]) PT-Bed Mobility Assessment Supine to Sit Supine to Sit Standby Assistance Sit to Supine Sit to Supine Standby Assistance PT-Transfer Assessment Sit to and From Stand Sit to and from Stand Contact Guard Assistance,Use of Upper Extremities Equipment Transfer Assistive Device Gait Belt,Front Wheeled Walker Orthotic/Prosthetic Devices or Brace: No Transfers Transfer Destination Bed,Chair Transfer Technique ambulated Transfer Ability Level of Assist Standby Assistance,Contact Guard Assistance,1 Person Assistance,Use of Upper Extremities Comments Mobility Comments pt sitting on the chair. BP:: 118/68. educated pt regarding posterior hip precautions. explained and repeated precautions x 5 but pt continues not to remember. pt completed sit to stand from the chair CGA and ambulated to EOB ~ 12 ft CGA. cued for precautions and safety. completed sit<>supine SBA with max cues for techniques and safety. pt completed sit to stand from EOB CGA and ambulated back to the chair using FWW SBA to CGA. pt agreed to do stair climbing. reviewed hip precautions again and pt recalled: 06/21. pt ambulated ~ 125 ft using FWW towards the stairs. educated pt regarding up/down stairs. pt completed up/down platform step using SPC + SCREENPLAY WRITER mod A to max A and max cues. repeated x 2 sets. completed up/down 3 steps using R rail ascending + SPC SBA to CGA and cues. assisted pt back to her room. ambulated from w/c to chair using FWW SBA. positioned pt on the chair. call light and table placed within reach. set up caregiver training this afternoon at 1 pm. Gait Assessment Gait Gait Assistance Required: Standby Assistance,Contact Guard Assist Distance (Feet) 125 Able to Maintain Weight Bearing Status Yes During Gait Assistive Devices Assistive Device Gait Belt,Front Wheeled Walker Orthotic/Prosthetic Devices or Brace: No Gait Deviations General Gait Pattern Antalgic,Decreased Stride Length,Decreased Feet Clearance,Step-to Gait Factors Limiting Gait Function Factors Limiting Gait Function Decreased Activity Tolerance, Decreased Strength,Difficulty Following Directions,Limited Range of Motion,Pain,Poor Balance,Poor Safety Awareness Stair Climbing Assessment Evaluation Level of Assist On Stairs Contact Guard Assistance, Minimal Assistance,Moderate Assistance,Maximal Assistance Devices Stair Climbing Assistive Devices Straight Cane,Right Railing Technique/Endurance Stair Climbing Direction Ascend and Descend Stair Climbing Technique Step to Step Number of Steps Climbed 3 Query Text: Stair Climbing Set # Repetitions (reps) 1 Comments Stair Climbing Comments pls refer to mobility section for details PT-Balance Assessment Sitting Balance and Reactions Static Sitting Balance Ability Normal Dynamic Sitting Balance Ability Good Standing Balance and Reactions Static Standing Balance Ability Fair Dynamic Standing Balance Ability Fair Device Used FWW M5 PT-IP Objective Assessments Start: 05/10/23 10:36 Freq: NEEDED Status: Active Protocol: Document 05/10/23 09:30 AB (Rec: 05/10/23 12:32 AB [id number]) Orientation Orientation/Cognition Level of Alertness Alert Orientation Name,Place,Situation Safety Awareness Decreased Safety Awareness Memory Description Short Term Impaired,Rug Layer Impaired Gross Range of Motion Lower Extremity ROM Assessment Within Functional Limits Strength Lower Extremity Strength Assessment Left Impaired Hip 3-/5 Knee 3+/5 Muscle Tone Muscle Tone WNL Yes M6 PT-IP Treatment Start: 05/10/23 10:36 Freq: NEEDED Status: Active Protocol: Document 05/10/23 09:30 AB (Rec: 05/10/23 12:32 AB [email or web address]) Physical Therapy Treatment Education Education Provided Precautions,Weight Bearing Status,Post-Op Packet,Safety M7 PT-IP Assessment and Plan Start: 05/10/23 10:36 Freq: NEEDED Status: Active Protocol: Document 05/10/23 09:30 AB (Rec: 05/10/23 12:32 AB [email or web address]) PT Summary Assessment and Plan Potential Rehabilitation Potential Fair Status of Condition at Evaluation Evolving Summary Impairments Pain,ROM,Strength,Balance, Coordination,Sensation,Tone, Cognition,Bed Mobility, Transfers,Gait,Activity Tolerance Assessment Summary pt is an 82 y/o F who underwent L ALVERTO posterior approach POD 1. pt has L hip posterior precautions and is WBAT. pt requiring SBA to CGA with transfers and ambulation using FWW and mod to max A for stair climbing. Caregiver training set up this afternoon at 1 pm. will continue to assess progress for safe d/c plan. Goals Bed Mobility Goal Independent Transfer Goal Independent,Front Wheeled Walker Gait Goal Independent,Front Wheel Walker Gait Distance 300 Other Goals up/down 2 steps using SPC +SCREENPLAY WRITER CGA up/down 2 steps using R rail ascending + SPC SBA Days to Meet Goals 5 Frequency of Treatment Frequency Of Treatment Twice a Day Treatment Plan Physical Therapy Treatment Plan Bed Mobility Training,Transfer Training,Gait Training, Therapeutic Exercise,Balance Retraining,Post Op Education, Discharge Planning,Hot or Cold Pack,Neuromuscular Re-ed, Coordination Retraining,Manual Therapy Precautions Posterior Hip Precautions No Hip Flexion > 90 degrees,No Hip Internal Rotation,No Hip Adduction Weight Bearing Status Weight Bearing Status Weight Bear as Tolerated Allowed Weight Bearing Amount (enter % LLE WBAT or #) (%) Recommendations To Nursing Amount of Assist Needed 1 Person Assist Discharge Recommendations PT Discharge Recommendations Home with 09/01 Assist Available,Home Health, Outpatient PT Transportation Needs at Discharge Private Vehicle,Wheelchair/ Cabulance
--- NOTE | 2023-05-10 11:05 | OT.IP.EVAL ---
Current Diagnoses Unilateral post-traumatic osteoarthritis, left hip (05/09/23) Surgery Performed Operation Date: 05/09/23 13:15 Actual Procedures p Total Hip Arthroplasty(Left) - [place] Wilkinson MD Past Medical History (Last Updated 05/01/23 @ 10:17 by America Lance, RN) Easy bruisability Hearing impaired HTN (hypertension) Hyperlipidemia Influenza (04/03/23) Osteoarthritis Overactive bladder Surgical History (Last Updated 05/01/23 @ 10:15 by America Lance RN) History of femur fracture History of hysterectomy Status post clamping of cerebral aneurysm Status post tonsillectomy Occupational Therapy Inpatient Evaluation/Re-Eval M1 PT/OT-IP Prior Functional Status Start: 05/10/23 11:10 Freq: NEEDED Status: Active Protocol: Document 05/10/23 11:05 [facility] (Rec: 05/10/23 11:29 [facility] [id number]) Medical Review Prior Functional Status Communication Independent Mobility and Gait Pt states does not use a device inside the house but uses a cane outside at times. Activities of Daily Living and IADL's Pt states able to do ADl and IADL needs but had pain. Prior Functional Level (Other details) Pt lives with her significant other who can assist physically but has Alzheimers and needing to be told what to do at this time per pt. Social History Household Members significant other Living Arrangements House Number of Floors (Floors) One Floor Number of Stairs To Enter/Railing? 2 shallow steps to the sidewalk and 2 steps with right rail to enter the house. Home Environment Standard Height Toilet,Walk in Shower Home Equipment Front Wheel Walker,Straight Cane,Hand Held Shower Additional Social History Comment Pt has a low built in seat in the shower. Pt's daughter to assist her today and go home at night and be back to assist the pt. M2 OT-IP Current Condition Start: 05/10/23 11:10 Freq: Status: Active Protocol: Document 05/10/23 11:05 [facility] (Rec: 05/10/23 11:29 [facility] [id number]) Occupational Therapy Current Condition Current Condition Evaluation Date 05/10/23 Treatment Diagnosis S/P L ALVERTO posterior approach Diagnosis Onset Date 05/09/23 Post Operative Precautions Posterior Hip Precautions No Hip Flexion > 90 degrees,No Hip Internal Rotation,No Hip Adduction M3 OT- IP Subjective and Pain Start: 05/10/23 11:10 Freq: Status: Active Protocol: Document 05/10/23 11:05 [facility] (Rec: 05/10/23 11:29 [facility] [id number]) OT- Subjective Occupational Therapy Visit Type Type Initial Evaluation Visit Start Time 10:35 Visit Stop Time 11:05 Total Visit Minutes 30 Occupational Therapy Visit Comments Patient Comments Pt not wanting to shower but agreed to get dressed. Patient/Caregiver Goals To go home. OT Pain Assessment Pain When Pain Assessed At Rest Pain Present Pain Present Pain Reported Location Left Hip Intensity 3 Scale Used Numeric (0 - 10) M4 OT- IP ADL's Start: 05/10/23 11:10 Freq: Status: Active Protocol: Document 05/10/23 11:05 [facility] (Rec: 05/10/23 11:29 [facility] [id number]) OT CFA-Lhef-Dkfvmfp General Evaluation Self-Feeding Ability Independent OT ADL-Grooming General Evaluation Grooming Ability Independent Areas Needing Assistance Retrieving/Set-up of Grooming Items Comments OT Grooming Comments Able to do while standing at the sink with her fww. OT ADL-Oral Care Comments Oral Care Comments Not performed. OT ADL-Dressing General Eval Lower Body Dressing Ability Standby Assistance,Moderate Assistance Areas Needing Assistance Socks Comments OT Dressing Comments Educated pt on use of and practiced with sock aid and auto body repair teacher to be able to increase pt's ability to follow her hip precautions. Otherwise pt will need assist. OT ADL-Toileting General Evaluation Toileting Ability Standby Assistance Comments OT Toileting Comments Pt heavy use of grab bar to stand, vc to stand and wipe if having a bowel movement as pt tends to wipe from the front. Suggested use of wet ones and pad at night, and assist. Pt would greatly benefit from a BSC to help come to stand at this time. OT ADL-Bathing Comments OT Bathing Comments Pt states to do at home. Pt will also benefit from a shower chair with armrests as her built in shower seat in too low per pt. M5 OT- IP IADL's Start: 05/10/23 11:10 Freq: Status: Active Protocol: Document 05/10/23 11:05 [facility] (Rec: 05/10/23 11:29 [facility] [id number]) OT-Instrumental Activities of Daily Living Deficits IADL Deficits Identified Deficits Home Safety Awareness Awareness of Need for Assistance at Home Good Awareness Ability to Problem Solve Emergency Able to Problem Solve Situations Medication Management Medication Management Comments Pt is a little forgetful today , concerns for safety. Money Management Money Management Comments Pt is a little forgetful today , concerns for safety. Meal Preparation Meal Preparation Caregiver Provides Assist Allergy Specialist Allergy Specialist Caregiver Provides Assist M6 OT- IP Functional Cognition Start: 05/10/23 11:10 Freq: Status: Active Protocol: Document 05/10/23 11:05 [facility] (Rec: 05/10/23 11:29 [facility] [id number]) Cognitive Factors Limiting Selfcare Function Cognitive Ability Level of Alertness Alert Patient Orientation Name,Age,Birthday,Month,Date, Year,Day of Week,Place, Situation Attention Span Ability Capable of Focused Attention, Capable of Sustained Attention Ability to Follow Commands Able to Follow One Step Commands with Increased Time, Able to Follow One Step Commands with Repetition Safety Awareness Decreased Recall of Precautions,Decreased Ability to Apply Precautions Cognitive Comments Cognitive Assessment Comments Pt needing reminders to recall and incorporate her hip precautions during ADl and mobility needs. VC to keep the FWW in front of her at all times. OT- Vision and Hearing OT- Hearing Assessment OT- Hearing Assessment WFL OT- Vision Assessment Visual Acuity Glasses For Reading Visual Attentiveness WFL Occular Pursuits WFL M7 OT- IP Mobility and Balance Start: 05/10/23 11:10 Freq: Status: Active Protocol: Document 05/10/23 11:05 [facility] (Rec: 05/10/23 11:29 [facility] [id number]) OT-Transfer Assessment Sit to and From Stand Sit to and from Stand Standby Assistance Transfers Transfer Ability Standby Assistance Technique Transfer Destination Chair,Shower Stall Transfer Technique Stand Step Pivot Devices Transfer Assistive Devices Gait Belt,Front Wheeled Walker Comments Mobility Comments Pt needing heavy assist from grab bars to stand from the toilet, SBA from the recliner when able to push up from surfaces to the FWW. OT- Balance Assessment Sitting Balance and Reactions Static Sitting Balance Ability Normal Dynamic Sitting Balance Ability Normal Standing Balance and Reactions Static Standing Balance Ability Good Dynamic Standing Balance Ability Good M8 OT- IP Objective Assessments Start: 05/10/23 11:10 Freq: Status: Active Protocol: Document 05/10/23 11:05 [facility] (Rec: 05/10/23 11:29 [facility] [id number]) OT Gross Range of Motion Upper Extremity Range of Motion Assessment Within Functional Limits OT Strength Upper Extremity Strength Assessment Within Functional Limits M9 OT- IP Assessment and Plan Start: 05/10/23 11:10 Freq: Status: Active Protocol: Document 05/10/23 11:05 [facility] (Rec: 05/10/23 11:29 [facility] [id number]) OT Summary Assessment and Plan Potential Rehabilitation Potential Good Analytic Complexity at Evaluation Low Summary OT Impairments Pain,Balance,Functional Mobility,Dressing,Toileting, Bathing,Toilet Transfers, Shower Transfers Progress Towards Goals Progressing Toward Goals Assessment Summary Pt low complexity and main barriers are coming to stand from lower surfaces, will need to get LB dressing equipment or assist from her significant other, able to recall 2/3 hip precautions and needing reminders to incorporate her hip precautions during ADl and mobility needs. Pt looking o get LB dressing equipment, shower chair, and BSC for home use. Pt to go home with assist and outpt PT. Goals Dressing Goal Independent,Patent Solicitor,Sock Aid Toileting Goal Independent Bathing Goal Standby Assistance Toilet Transfer Goal Independent Shower Transfer Goal Independent Days to Meet Goals 2 Frequency of Treatment Frequency Of Treatment Once a Day Treatment Plan OT Treatment Plan ADL Training,Functional Mobility,Patient/Family Education,Discharge Planning Discharge Recommendations OT Discharge Recommendations Home with Assistance, Outpatient PT Home Equipment Needs LB dressing equipment, BSC, shower chair Transportation Needs at Discharge Private Vehicle
--- NOTE | 2023-05-10 13:03 | PT.IPTN ---
Current Diagnoses Unilateral post-traumatic osteoarthritis, left hip (05/09/23) Surgery Performed Operation Date: 05/09/23 13:15 Actual Procedures p Total Hip Arthroplasty(Left) - [place] Wilkinson MD Physical Therapy Treatment Note M2 PT-IP Current Condition Start: 05/10/23 10:36 Freq: NEEDED Status: Discharge Protocol: Document 05/10/23 09:30 AB (Rec: 05/10/23 12:32 AB [id number]) Physical Therapy Current Condition Current Condition Evaluation Date 05/10/23 Treatment Diagnosis s/p L ALVERTO posterior approach; difficulty in walking Onset Date 05/09/23 M3 PT-IP Subjective Start: 05/10/23 10:36 Freq: NEEDED Status: Discharge Protocol: Document 05/10/23 13:36 TS (Rec: 05/10/23 13:57 TS [id number]) Subjective Physical Therapy Visit Type Type Treatment Note Visit Start Time 13:03 Visit Stop Time 13:30 Total Visit Minutes 27 Notes Daughter present for caregiver training Number of ROUTE DELIVERY DRIVER Visits 1 Physical Therapy Visit Comments Patient Comments Pt found resting in chair, agreeable to PT. M4 PT-IP Mobility and Gait Start: 05/10/23 10:36 Freq: NEEDED Status: Discharge Protocol: Document 05/10/23 13:36 TS (Rec: 05/10/23 13:57 TS [id number]) PT-Bed Mobility Assessment Supine to Sit Supine to Sit Standby Assistance Sit to Supine Sit to Supine Standby Assistance Scooting Scooting to Edge of Bed Standby Assistance PT-Transfer Assessment Sit to and From Stand Sit to and from Stand Standby Assistance,Use of Upper Extremities Equipment Transfer Assistive Device None,Gait Belt,Front Wheeled Walker Orthotic/Prosthetic Devices or Brace: No Comments Mobility Comments Pt stood before therapist was ready with FWW and gait belt SBA, therapist requested pt remain seated. Daughter was instructed in and performed donning of gait belt. Pt recalled 1/3 hip precautions prior to mobility, could not recall no bending past 90D and crossing of legs. Sit to stand with FWW SBA, pt has good standing balance. She ambulated ~200' SBA with FWW and an emerging step thru gait , had no buckling or LOB. She performed stairs x6 with R handrail and SPC CGA from daughter, pt cued for step sequencing. She performed steps x4 Renetta with max cues on platform step with handheld assist and use of SPC with daughter. Pt ambulated back to room, questioned on precautions again, continued to recall only internal rotation of hip. Pt performed bed mobility Sit to supine/ supine to sit with flat bed SBA. Pt was educated on post op packet and post-op ex. Pt was left back up in chair preparing for d/c. Gait Assessment Gait Gait Assistance Required: Standby Assistance Distance (Feet) 200 Able to Maintain Weight Bearing Status Yes During Gait Assistive Devices Assistive Device Gait Belt,Front Wheeled Walker Orthotic/Prosthetic Devices or Brace: No Gait Deviations General Gait Pattern Antalgic,Decreased Stride Length,Decreased Feet Clearance,Step-to Gait Factors Limiting Gait Function Factors Limiting Gait Function Decreased Activity Tolerance, Decreased Strength,Difficulty Following Directions,Limited Range of Motion,Pain,Poor Balance,Poor Safety Awareness Comments Gait Comments See mobility comments. Stair Climbing Assessment Evaluation Level of Assist On Stairs Contact Guard Assistance, Minimal Assistance,1 Person Assistance Devices Stair Climbing Assistive Devices Straight Cane,Right Railing Technique/Endurance Stair Climbing Direction Ascend and Descend Stair Climbing Technique Step to Step Number of Steps Climbed 10 Stair Climbing Set # Repetitions (reps) 1 Comments Stair Climbing Comments See mobility comments PT-Balance Assessment Sitting Balance and Reactions Static Sitting Balance Ability Normal Dynamic Sitting Balance Ability Good Standing Balance and Reactions Static Standing Balance Ability Good Dynamic Standing Balance Ability Good Device Used FWW M5 PT-IP Objective Assessments Start: 05/10/23 10:36 Freq: NEEDED Status: Discharge Protocol: Document 05/10/23 09:30 AB (Rec: 05/10/23 12:32 AB [id number]) Orientation Orientation/Cognition Level of Alertness Alert Orientation Name,Place,Situation Safety Awareness Decreased Safety Awareness Memory Description Short Term Impaired,Nursing Home Impaired Gross Range of Motion Lower Extremity ROM Assessment Within Functional Limits Strength Lower Extremity Strength Assessment Left Impaired Hip 3-/5 Knee 3+/5 Muscle Tone Muscle Tone WNL Yes M6 PT-IP Treatment Start: 05/10/23 10:36 Freq: NEEDED Status: Discharge Protocol: Document 05/10/23 13:36 TS (Rec: 05/10/23 13:57 TS [id number]) Physical Therapy Treatment Education Education Provided Precautions,Weight Bearing Status,Post-Op Packet,Safety M7 PT-IP Assessment and Plan Start: 05/10/23 10:36 Freq: NEEDED Status: Discharge Protocol: Document 05/10/23 13:36 TS (Rec: 05/10/23 13:57 TS [id number]) PT Summary Assessment and Plan Potential Rehabilitation Potential Fair Summary Impairments Pain,ROM,Strength,Balance, Coordination,Sensation,Tone, Cognition,Bed Mobility, Transfers,Gait,Activity Tolerance Progress Towards Goals Progressing Toward Goals Assessment Summary Lola is making good progressing with her mobility. She is SBA for sit to stand with no AD and with FWW. She progressed her ambulation to ~ 200'SBA with FWW. She performed stairs x6 with R handrail and SPC CGA and x4 on platform step with use of SPC and handheld assist with Renetta . Pt has difficulty recalling precautions and was educated on precautions multiple times this session. Daughter was instructed in and performed donning of gait belt, sit to stand technique, gait and stair sequencing. PT is recommending home 24/7 assist and HHPT. Goals Bed Mobility Goal Independent Transfer Goal Independent,Front Wheeled Walker Gait Goal Independent,Front Wheel Walker Gait Distance 300 Other Goals up/down 2 steps using SPC +SPECIAL EDUCATION ASSOCIATE CGA up/down 2 steps using R rail ascending + SPC SBA Days to Meet Goals 5 Frequency of Treatment Frequency Of Treatment Twice a Day Treatment Plan Physical Therapy Treatment Plan Bed Mobility Training,Transfer Training,Gait Training, Therapeutic Exercise,Balance Retraining,Post Op Education, Discharge Planning,Hot or Cold Pack,Neuromuscular Re-ed, Coordination Retraining,Manual Therapy Precautions Posterior Hip Precautions No Hip Flexion > 90 degrees,No Hip Internal Rotation,No Hip Adduction Weight Bearing Status Weight Bearing Status Weight Bear as Tolerated Allowed Weight Bearing Amount (enter % LLE WBAT or #) (%) Recommendations To Nursing Amount of Assist Needed 1 Person Assist Discharge Recommendations PT Discharge Recommendations Home with 24/7 Assist Available,Home Health, Outpatient PT Transportation Needs at Discharge Private Vehicle,Wheelchair/ Cabulance
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
--- NOTE | 2023-05-10 13:37 | PC.NURSE ---
Day shift: Discharge instructions gone over with patient and patient's daughter. PIV removed prior to discharge. All questions answered, patient stated understanding. RN Jovan escorted patient to main entrance via wheelchair where patient's daughter plans to drive her home. All belongings with patient, including patient's walker.
== END 2023-05-10 13:39 | disposition home or self-care (01) ==
LOC: OR 11:10 → AC 11:10
PROVIDERS: PCP Family Medicine; Referring Provider Orthopaedic Surgery; Visit Provider Orthopaedic Surgery
PROC: 0SRB0JZ Replacement of Left Hip Joint with Synthetic Substitute, Open Approach (ICD-10-PCS; CPT 27130; principal; 2023-05-09 13:15)
DX: M16.12 Unilateral primary osteoarthritis, left hip (principal)
CPT/HCPCS: 27130; 36415; 72170; 73502; 85014; 85018; 87801; 97116; 97162; 97165; 97530; 97535; C1776; C9290; J0171; J0690; J1100; J2405; J2704

== ENCOUNTER → 2024-12-18 15:16 | Outpatient (CLI) | payer MEDICARE, OTHER, SELFPAY ==
[2023-05-09 17:15] VITALS: BMI 26.2
--- NOTE | 2024-12-18 15:18 | DI.RAD.S_ITS ---
PROCEDURE: XR HIP W PEL IF DONE RT 2V INDICATIONS: Pain in right hip TECHNIQUE: AP pelvis with lateral view(s) of the both hip(s). COMPARISON: [facility], JORGE LUIS, XR HIP W PEL IF DONE LT 2V, 05/09/2023, 16:03. [facility], CR, XR HIP W PEL IF DONE CLAUDIA 3TO4V, 08/05/2022, 14:30. FINDINGS: Bones: No fractures or dislocations. Pelvic ring appears intact. No suspicious bony lesions. Left hip arthroplasty. No periprosthetic lucency to suggest loosening or infection. Moderate right hip DJD. Soft tissues: The visualized bowel gas pattern is normal. No suspicious soft tissue calcifications. IMPRESSION: Moderate right hip DJD. Stable left hip arthroplasty. Dictated by: Holland Pavon M.D. on 12/19/2024 at 12:39 Approved by: Holland Pavon M.D. on 12/19/2024 at 12:42
== END ==
PROVIDERS: PCP Family Medicine; Referring Provider Family Medicine; Visit Provider Family Medicine
DX: M16.11 Unilateral primary osteoarthritis, right hip (principal); M25.551 Pain in right hip; Z96.642 Presence of left artificial hip joint
CPT/HCPCS: 73502

== ENCOUNTER → 2025-06-06 12:17 | Outpatient (CLI) | payer MEDICARE, OTHER, SELFPAY ==
[2023-05-09 17:15] VITALS: BMI 26.2
--- NOTE | 2025-06-06 12:20 | DI.RAD.S_ITS ---
PROCEDURE: XR CHEST 2V INDICATIONS: DSYPENA TECHNIQUE: 2 views of the chest were acquired. COMPARISON: None. FINDINGS: Surgical changes and devices: Right upper quadrant clips are seen. Lungs and pleura: Lungs are clear. No pleural effusions or pneumothorax. Mediastinum: The cardiac contours are within normal limits. The aorta demonstrates calcification and tortuosity. Bones and chest wall: No suspicious bony abnormalities. Age-appropriate bony degenerative changes are seen. Soft tissues appear unremarkable. IMPRESSION: No acute cardiopulmonary abnormality is seen. Postoperative and degenerative changes are seen. Dictated by: Payam Bruce M.D. on 06/07/2025 at 12:11 Approved by: Payam Bruce M.D. on 06/07/2025 at 12:11
== END ==
PROVIDERS: PCP Family Medicine; Referring Provider Family Medicine; Visit Provider Family Medicine
DX: R06.09 Other forms of dyspnea (principal)
CPT/HCPCS: 71046

== ENCOUNTER → 2025-06-10 14:48 | Outpatient (CLI) | payer MEDICARE, OTHER, SELFPAY ==
[2023-05-09 17:15] VITALS: BMI 26.2
--- NOTE | 2025-06-10 14:49 | DI.ECHO.S_ITS ---
[facility] [facility]---------+ [facility] : : [address] : : [place] : : [id number] : : Phone: [phone] Echocardiogram Report + + :Name: DEVONTE SUAREZ Study Date: 06/10/2025 Height: 64 in : :[facility] ReadingLocation: Weight: 150 lb : : Gender: Female BSA: 1.7 m2 : :: 1940 Age: 84 yrs BP: 144/90 mmHg: :Reason For Study: ROBERT : :Ordering Physician: HERON, : :VICK Performed By: Kalpesh Hdz : :Referring: VICK SHELBY : + + Interpretation Summary 1) Normal left ventricular thickness, size, wall motion, and systolic function (EF 55-60%). 2) Normal right ventricular size and function. 3) No significant valvular abnormalities. 4) No prior Echo available for comparison. Procedure: A two-dimensional transthoracic echocardiogram with color flow and Doppler was performed. The study quality was technically adequate. There is no prior echocardiogram noted for this patient. The patient was in normal sinus rhythm during the exam. Left Ventricle: The left ventricle is normal in size. Left ventricular wall thickness is normal. Proximal septal thickening is noted. Left ventricular systolic function is normal. The ejection fraction is estimated to be 55-60%. There are no focal wall motion abnormalities. Grade I diastolic dysfunction with normal left atrial pressure. Right Ventricle: The right ventricle is normal in size and function. Atria: The left atrial size is normal. Right atrial size is normal. There is no Doppler evidence for an interatrial shunt. Mitral Valve: The mitral valve leaflets appear to open well. There is mild mitral annular calcification. There is no mitral valve stenosis. There is trace mitral regurgitation. Aortic Valve: The aortic valve is trileaflet. The aortic valve opens well. There is no aortic valve stenosis. No aortic regurgitation is present. Tricuspid Valve: The tricuspid valve is not well visualized, but is grossly normal. There is trace tricuspid regurgitation. Pulmonary artery pressures cannot be estimated because of the lack of a measurable TR jet velocity but the IVC suggests a CVP of around 3 mmHg. Pulmonic Valve: The pulmonic valve is not well seen, but is grossly normal. There is trace pulmonic regurgitation. Great Vessels: The aortic root is normal size. The ascending aorta is normal in size. The aortic arch could not be visualized. The pulmonary is not well visualized. The IVC is of normal diameter and collapses greater than 50% with a sniff. This suggests a low right atrial pressure of 3 mm Hg. Pericardium/ Pleura There is no pericardial effusion. MMode/2D Measurements & Calculations LVIDd: 3.2 cm LVOT diam: 2.0 cm LVIDs: 2.3 cm Ao root diam: 3.0 cm FS: 28.2 % asc Aorta Diam: 3.3 cm IVSd: 1.2 cm LVPWd: 1.0 cm LV peacock. diameter/BSA (cm/m^2): 1.9 LV sys. diameter/BSA (cm/m^2): 1.3 LA A2 area: 17.6 cm2 IVC diam: 1.8 cm LA A4 area: 13.3 cm2 LA length (vol): 4.9 cm LA vol: 40.8 ml LA vol index: 23.6 ml/m2 RVD1 (basal): 2.9 cm RVD2 (mid): 2.4 cm TAPSE: 2.3 cm Doppler Measurements & Calculations Ao V2 max: 146.7 cm/sec LVOT Max Gutierrez: 107.1 cm/sec Ao V2 mean: 104.5 cm/sec LV V1 max P.6 mmHg Ao max P.6 mmHg LV V1 VTI: 18.3 cm Ao mean P.0 mmHg VIVIANE(I,D): 2.3 cm2 Ao V2 VTI: 24.8 cm VIVIANE(V,D): 2.3 cm2 sev ratio: 0.74 VIVIANE indexed to BSA (cm^2/m^2): 1.4 MV E max gutierrez: 57.0 cm/sec PA V2 max: 111.3 cm/sec MV A max gutierrez: 90.3 cm/sec PA V2 mean: 80.7 cm/sec MV E/A: 0.63 PA mean P.9 mmHg Med Peak E' Gutierrez: 5.9 cm/sec PA pr(Accel): 37.9 mmHg E/E' med: 9.7 Lat Peak E' Gutierrez: 5.7 cm/sec E/E' lat: 9.9 E/e' average: 9.8 MV dec time: 0.14 sec SV(LVOT): 57.9 ml Reading Physician:03:48 PM
== END ==
PROVIDERS: PCP Family Medicine; Referring Provider Family Medicine; Visit Provider Family Medicine
DX: I34.81 Nonrheumatic mitral (valve) annulus calcification (principal); R06.09 Other forms of dyspnea
CPT/HCPCS: 93306